=== PATIENT | male | born 2005 | race Caucasian/White ===

== ENCOUNTER 2025-04-30 13:51 | Outpatient (AMB) | payer BC, SELFPAY ==
--- OUTSIDE RECORDS SUMMARY | 2025-04-29 11:00 | XMS_ITS | Encounter Summary ---
Author Organization [facility] Address [address] [place] [id number] Phone Care Team Providers Care Cylinder Batcher Name Role Phone Radha Marte NP Primary Care Provider [phone] Reason for Referral * MRI/CAT Scan - New Request Specialty Diagnoses / Procedures Referred By Brenna t Referred To Contact Radiology Diagnoses Chronic daily headache NDPH (new daily persistent headache) Chronic tension-type headache, not intractable Procedures MRI Brain Larry Garza MD [address] [place] [address] Phone: tel: fax: mailto:[email or web address] Referral ID Status Reason Start Date Expiration Date V isits Requested Visits Authorized [id number] New Request 04/29/2025 1 1 Reason for Visit * Consultation (Routine) - New Request Specialty Diagnoses / Procedures Referred By Contren t Referred To Contact Neurology Diagnoses Headache, unspecified Beryl Bradley MD [address] [place] [id number] Phone: tel: fax: mailto:[email or web address] Akhil Anthony MD Phone: tel: fax: mailto:[email or web address] Referral ID Status Reason Start Date Expiration Date V isits Requested Visits Authorized [id number] New Request 10/04/2024 10/04/2025 1 1 Encounter Details Date Type Department Care Team (Late st Contact Info) Description 04/29/2025 11:00 AM EDT Office Visit [facility] Neurology at [place] [id number] [facility] [address] [place] [id number] Larry Garza MD [address] [place] [address] [place] [address] [email or web address] Chronic daily headache (Primary Dx); NDPH (new daily persistent headache); Chronic tension-type headache, not intractable; Migraine without aura and without status migrainosus, not intractable Social History Tobacco Use Types Packs/Day Years Used Date Smoking Tobacco: Never Assessed Education Answer Date Recorded Are you interested in more education? Not on elvira e 07/26/2024 Are you concerned about learning? Not on file 07/26/2024 No 07/26/2024 No 07/26/2024 Digital Access Answer Date Recorded No 07/26/2024 No 07/26/2024 Reliable internet access at home? Not on file 07/26/2024 Device with a working camera? Not on file Sex and Gender Information Value Date Recorded Sex Assigned at Not on file Legal Sex Male 2:05 PM EDT Gender Identity Not on file Sexual Orientation Not on file documented as of this encounter Last Filed Vital Signs Vital Sign Reading Time Taken Comments Blood Pressure 123/81 04/29/2025 10:10 AM EDT Pulse 59 04/29/2025 10:10 AM EDT Temperature 37.6 C (99.7 F) 04/29/2025 10:10 AM EDT Respiratory Rate - - Oxygen Saturation 100% 04/29/2025 10:10 AM EDT Inhaled Oxygen Concentration - - Weight 60.3 kg (133 lb) 04/29/2025 10:10 AM EDT Height 182.9 cm (6') 04/29/2025 10:10 AM EDT Body Mass Index 18.04 04/29/2025 10:10 AM EDT documented in this encounter Patient Instructions * Patient Instructions* Larry Garza MD - 04/29/2025 11:00 AM EDT For vitamins can consider takin) magnesium oxide 400mg or magnesium glycinate 200mg daily 2) Vitamin B2 (riboflavin) 400mg daily documented in this encounter Progress Notes * Larry Garza MD - 04/29/2025 11:00 AM EDT Images from the original note were not included. ? ? OUTPATIENT HEADACHE MEDICINE CONSULTATION [facility]/ [facility] ?04/28/2025 Gabino Mccracken is a 20 y.o. male who presents for headaches. He is accompanied by his mother. History of Present Illness He has a lifelong history of occasional mild headaches, which have intensified since his COVID-19 infection in 2019 or 2020. He describes a constant pressure throughout his entire cranium, with the location of the pain varying between the front, back, and eyes. The pain is described as a squeezing sensation, with a baseline intensity of 2 out of 10, peaking at 4 or 5. The headaches are daily, with brief periods of relief lasting a few hours. He believes the headaches are primarily due to cardiovascular issues (recently diagnoased w dysautonomia) and stress. He has tried ibuprofen and acetaminophen without significant relief. He also experiences fatigue, brain fog, heart palpitations, a lower heart rate, digestive issues, heat and cold intolerance, frequent urination, symptoms worsening after exertion, and sleep disturbances. He has noticed that his hea dache gets worse if he is having heart palpitations. He has identified focusing and screen time as triggers for his headaches. He has not noticed any changes in the intensity of his headache with changes in blood pressure. He also has bradycardia, which he thinks may contribute to his headaches. He is sensitive to light and loud sounds during his headaches but does not experience any aura. His headaches do not wake him up at night, but he sometimes wakes up with a severe headache. He reports no jaw or neck pain, nasal congestion, tearing of the eye, numbness, tingling, weakness, or worsening of headache with coughing or bearing down for a bowel movement. He reports no history of concussions, head injuries, whiplash injuries, meningitis, or brain infections. His physical activity has been declining, but he still engages in weightlifting and walking. He does not consume caffeine or alcohol and does not smoke. He has not had any brain imaging done. 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 He sometimes wonders ifhe has intracranial hypertension. He has been diagnosed with dysautonomia and orthostatic hypotension. Lying down helps when his orthostatic hypotension is acting up. PAST MEDICAL HISTORY: He is on the autism spectrum and has a lot of anxiety. Recent diagnosis of dysautonomia SOCIAL HISTORY: Starting school at [employer] in the fall. Alcohol: No Tobacco: No Coffee/Tea/Caffeine-containing Drinks: No FAMILY HISTORY - Negative for headaches or migraines in the family history. MEDICATIONS PREVIOUS MEDS: Ibuprofen Reason for Discontinuation: Did not help with headaches Acetaminophen Reason for Discontinuation: Did not help with headaches Review of Systems Objective ??BP 123/81 (BP Location: Right arm, Patient Position: Sitting) Pulse (!) 59 Temp 37.6 ??C (99.7 ??F) Ht 182.9 cm (6') Wt 60.3 kg (133 lb) SpO2 100% BMI 18.04 kg/m?? Physical Exam Cranial Nerve Examination CN II: Optic discs are sharp. CN III IV : Pupils equal, reactive. Extraocular movements intact. CN V: Facial sensation is intact bilaterally. CN VII: Facial movements are symmetric. CN XII: Tongue is midline. Motor Examination Coordination: Flzvpu-hn-lldx test normal. Upper Extremity Drift Test: No pronator drift. Reflexes Deep Tendon Reflexes: 1+ reflex in the arms, 2+ in the legs. Sensory Examination Light Touch, Vibration and Proprioception: Sensation normal to face and hands. Neck: Neck range of motion is full. Assessment & Plan #NDPH #Secondary ROBERTS #Chronic TTH w some migrainous features The headache is likely a symptom of dysautonomia, with features suggestive of both tension headacheand migraine. The intensity is mild to moderate, and there are no other neurological symptoms present. Given daily headache as red flag, will get an MRI of the brain with and without contrast will be ordered to rule out other potential causes though clinical suspicion remains that his dysautonomia could be contributing to low pressure headache.. He was advised to maintain a daily water intake of at least 2 liters, engage in 150 minutes of exercise per week, ensure 8 hours of sleep per night, and avoid common headache triggers. Yvkt-sow-ihxgjzg vitamins magnesium and vitamin B2 were recommended for headache management. If the MRI results are normal, no further follow-up will be necessary unlessthe headaches worsen. - Brain MRI wwo contrast - hold off on medications for now (based on presentation, patietn preference) #Dysautonomia. The patient's symptoms, including fatigue, brain fog, heart palpitations, lower heart rate, digestive issues, heat and cold intolerance, frequent urination, symptoms worsening after exertion, and sleep disturbances, are consistent with dysautonomia. He was advised to continue managing his blood pressure and cardiovascular symptoms as these are likely contributing to his headaches. - following cardiology, covid clinic I obtained verbal consent from the patient or their proxy to record this visit for purposes of producing a draft of the encounter documentation. Follow-up PRN pending MRI results ? Comment: ? Review patient expectations for this visit. ? Nature and prognosis discussed. ? Discussed medications with the patient, including risks, benefits, side effects and alternatives. Off-label use of medications is discussed with the patient as warranted.? ? I personally spent 50 minutes preparing for, caring for the patient (F2F and non-F2F), and finalizing the visit for this patient. ? ? Larry Valverde MD [facility] Headache Attending ? documented in this encounter Plan of Treatment Upcoming Encounters Date Type Department Care Team (Late st Contact Info) Description 04/29/2025 Procedure Pass [facility] Radiology [address] [address] 05/30/2025 3:15 PM EDT Appointment [facility] Radiology [address] [address] Larry Garza MD [address] [place] [address] [place] [address] [email or web address] Scheduled Orders Name Type Priority Associated Diagnoses Orde r Schedule MRI Brain Imaging Routine Chronic daily headache NDPH (new daily persistent headache) Chronic tension-type headache, not intractable Expected: 05/06/2025, Expires: 07/30/2025 documented as of this encounter Visit Diagnoses Diagnosis Chronic daily headache- Primary Headache NDPH (new daily persistent headache) New daily persistent headache Chronic tension-type headache, not intractable Chronic tension type headache Migraine without aura and without status migrainosus, not intractable documented in this encounter Care Teams Cylinder Batcher Relationship Specialty Start Date End Date Radha Marte NP [address] [place] [phone] PCP - General Nurse Practitioner 01/10/25 documented as of this encounter Additional Source Comments The information contained in this document represents components of the legal health record. It is not the complete legal health record.[facility]
--- NOTE | 2025-04-30 14:02 | MHC.OFFVIS ---
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 These symptoms have been present for a few years and have progressively worsened over time. The patient reports experiencing dizziness upon standing, which necessitates sitting back down to alleviate the symptoms. The patient has a history of COVID-19 infection in 2020, after which these symptoms began to manifest. He describes a significant decrease in exercise capacity, noting that post-exertional malaise can last several days. Previously able to run significant distances, he now experiences severe fatigue after minimal exertion, such as running half a mile. The patient monitors his blood pressure at home, (which has shown readings as low as 76/61 mmHg per PCP note, but patient cannot recall this). He also reports experiencing premature ventricular contractions (PVCs) after physical activity, which can persist for several days. Despite these symptoms, he has not experienced syncope. [facility] Family History (Updated 04/30/25 @ 14:11 by Dianna Meier) Mother High blood pressure Father No problems noted. Social History (Updated 04/30/25 @ 14:11 by Dianna Meier) Alcohol intake: never Patient Tobacco Use Status: Never used Tobacco Review of Systems Const Denies weakness ENT Reports dizziness Card Denies chest pain, Denies chest pain with activity, Denies syncope, Denies rapid heart rate, Denies pedal edema, Denies edema, Denies leg edema, Denies lightheadedness, Reports palpitations, Denies dyspnea, Denies dyspnea on exertion and Denies orthopnea Resp Denies cough, Denies dyspnea and Denies dyspnea on exertion GI Denies hematochezia and Denies change in stool character Musc Denies abnormal gait, Denies muscle cramps, Denies muscle weakness, Denies numbness, Denies radiating pain into limb and Denies tingling Neuro Denies abnormal gait, Reports dizziness, Denies syncope, Denies numbness, Denies tingling and Denies weakness Endo Reports palpitations Physical Exam Vital Signs: Last Vital Signs Pulse 47 L 04/30/25 14:09 BP 100/58 L 04/30/25 14:09 BMI result Body Mass Index 17.3 Const General: comfortable and no acute distress Orientation/consciousness: patient oriented x3 HEENT Other: Unremarkable Head: Yes normal to inspection Neck Neck: Yes normal visual inspection Chest Chest palpation & inspection: normal inspection of the chest Resp Auscultation: clear to auscultation bilaterally Cardio Palpation: normal PMI Heart sounds: S1 normal heart sound present, S2 normal heart sound present, no gallops, no murmurs and no rubs GI Palpation (GI): Soft to palpation Back/Spine/Pelvis Other: unremarkable Skin General skin exam: no rashes or lesions noted Neuro General: patient oriented x3 Extrem General: Yes normal to inspection Psych Mental Status: mental status grossly normal Office Procedures EKG Details: EKG with sinus bradycardia at 47/Min; sinus arrhythmias; rightward axis; [place]. [id number], Complete Assessment & Plan Assessment & Plan (1) PVC (premature ventricular contraction): Code(s): I49.3 - Ventricular premature depolarization Category: Medical (2) Sinus bradycardia: Code(s): R00.1 - Bradycardia, unspecified Category: Medical (3) Orthostatic hypotension: Code(s): I95.1 - Orthostatic hypotension Category: Medical (4) Chronic fatigue: Code(s): R53.82 - Chronic fatigue, unspecified Category: Medical (5) Post-COVID syndrome: Code(s): U09.9 - Post COVID-19 condition, unspecified Category: Medical Plan He has completed a Holter monitor through an outside practice. In that study, heart rates that ranged from 30-115/Min. PVCs were noted. However, there was no mention of the actual PVC burden. The bradycardia episodes have been described to occur predominantly during back hand hours. Palpitations in patient diary have correlated with sinus bradycardia and PVCs. The plan includes conducting an echocardiogram to assess cardiac function and a stress test to evaluate the heart's response to physical activity. A tilt table test is recommended to investigate the cause of the patient's dizziness upon standing. As there is no information on the actual PVC burden, he does not need a repeat Holter to quantify this. The patient will be followed up in four to six weeks to review test results and adjust the management plan accordingly. Orders: Orders ECG 3 day holter monitor Today I49.3 - Ventricular premature depolarization CA echo transthoracic complete Today I49.3 - Ventricular premature depolarization CA stress test Today I49.3 - Ventricular premature depolarization ECG Tilt Table Test Today I95.1 - Orthostatic hypotension Coding Level of Care Code New Pt Level 4 (44846) Complex EM visit Add On G2211 Diagnoses PVC (premature ventricular contraction) I49.3 Sinus bradycardia R00.1 Orthostatic hypotension I95.1 Chronic fatigue R53.82 Post-COVID syndrome U09.9 CPT Codes EKG - CPT: 98513-[id number], Complete ([id number])
[2025-04-30 14:09] VITALS: BP 100/58; PULSE 47; BMI 17.3
== END 2025-04-30 15:04 | disposition home or self-care (01) ==
LOC: HO.HCS 13:52
PROVIDERS: PCP Registered Nurse; Visit Provider Internal Medicine
DX: I49.3 Ventricular premature depolarization (principal); R00.1 Bradycardia, unspecified; I95.1 Orthostatic hypotension; R53.82 Chronic fatigue, unspecified; U09.9 Post COVID-19 condition, unspecified
CPT/HCPCS: 93010; 99204

== ENCOUNTER → 2025-04-30 13:51 | Outpatient (BNVA) | payer BC, SELFPAY | PROVIDERS: PCP Registered Nurse; Visit Provider Internal Medicine | DX: I95.1 Orthostatic hypotension (principal); I49.3 Ventricular premature depolarization; R00.1 Bradycardia, unspecified; R53.82 Chronic fatigue, unspecified; U09.9 Post COVID-19 condition, unspecified | CPT/HCPCS: 93005 ==

== ENCOUNTER → 2025-06-06 09:03 | Outpatient (REF) | payer BC, SELFPAY ==
--- NOTE | 2025-06-06 09:09 | HM_ITS ---
* Total monitoring time 3 days. * Underlying rhythm is sinus with an average rate of 47/Min. * About 77% of the time, rate < 60/Min. * Rare supraventricular ectopy. * Rare ventricular ectopy, burden of 0.3%. * No significant pauses or high-grade AV blocks. * ' more PVCs than usual' symptom in patient diary correlates with sinus rhythm and PVCs. MTDD
--- NOTE | 2025-06-06 09:09 | CA_ITS ---
Transthoracic Echocardiogram Patient (Last, First, Middle): Silvio Mccracken, Gender: M Date of : 2005 Age: 20 Procedure Date: 06/06/2025 Procedure Type: Transthoracic Echocardiogram Location: OP Height: 182.88 cm Weight: 58.97 kg BSA: 1.77 m2 Heart Rate: 51 bpm BP: 115 / 60 mmHg Sheriff Deputy: Referring MD: Clifford Thomas MD Automobiles Salesperson: Mark Zacarias MD Symptoms: I49.3 - Ventricular premature depolarization Study Quality: Adequate ECG Rhythm: Bradycardia Conclusions: - Trivial pericardial effusion otherwise normal study Findings Left Ventricle Normal left ventricular size, thickness, and systolic function. The visually estimated ejection fraction is between 65-70%. Diastolic function is normal for age. Right Ventricle Normal right ventricular cavity size and systolic function. Atria Both atria are normal in size. There is no evidence of interatrial shunt. Aortic Valve Normal aortic valve structure and function. There is no aortic valve stenosis. There is no aortic valve regurgitation. Mitral Valve Normal mitral valve structure and function. There is no mitral valve regurgitation. There is no mitral valve stenosis. Pulmonic Valve The pulmonic valve is normal. There is trace pulmonic valve regurgitation. Tricuspid Valve Normal tricuspid valve structure. There is trace tricuspid valve regurgitation. The right ventricular systolic pressure is normal. The right ventricular systolic pressure is 21 mmHg. Normal right atrial pressure. There is no evidence of pulmonary hypertension. Great Vessels All visible segments of the aorta are normal in size. The visualized portions of the pulmonary artery and branches are normal. Venous The inferior vena cava is normal in size and collapses greater than 50% with inspiration. Pericardium/Pleural There is a trivial pericardial effusion. Prior Study Comparison No prior study available for comparison. Measurements 2D Linear Measurements IVSd: 0.88 0.6-0.9/0.6-1.0 cm LVIDd: 4.18 3.9-5.3/4.2-5.9 cm LVIDd Index: 2.36 2.4-3.2/2.2-3.1 cm/m2 LVIDs: 2.77 2.0-3.6 cm LVPWd: 0.83 0.7-1.1 cm LA Diam: 2.70 2.7-3.8/3.0-4.0 cm LAIDs Index: 1.53 1.5-2.3 cm/m2 LV Mass: 136.12 67-162/88-224 g LV Mass Index: 76.90 43-95/49-115 g/m2 LVOT Diam: 2.20 3.0+(-)1.3 cm 2D Systolic Function EF 4C: 69.40 >55% Mitral Valve MV Pk E: 0.77 MV PK A: 0.34 MV Decel Time: 209.00 E/A: 2.30 E'Lateral: 13.70 E'Medial: 15.60 E/E' Med: 4.90 E/E' Lat: 5.60 PHT: 61.00 MVA PHT: 3.61 Decel Miner: 3.68 Aortic Valve AoV Pk Edison: 1.11 AoV Mn Edison: 0.81 AoV VTI: 0.32 AoV Pk Grad: 5.00 Aov Mn Grad: 3.00 ASA Cont.VTI: 2.43 LVOT LVOT Pk Edison: 0.81 LVOT Mn Edison: 0.55 LVOT VTI: 0.21 LVOT Pk Grad: 3.00 LVOT Mn Grad: 1.00 LVOT Diam: 2.20 LVOT Area: 3.80 Diastolic Function MV Pk E: 0.77 MV Pk A: 0.34 E/A: 2.30 E'Medial: 15.60 E/E' Med: 4.90 E' Laterial: 13.70 E/E' Lat: 5.60 Right Ventricle TAPSE (mm): 34.20 TVS' Edison: 15.60 Tricuspid Valve TR Pk Edison: 2.11 TR Pk Grad: 18.00 RA Press: 3.00 RVSP: 21.00 Great Vessels Aorta Sinus of Valsalva: 2.90 2.0-3.5 cm Ao Asc: 2.60 2.1-3.4 cm Pulmonary Veins Pulm Vein S/D 0.90 Pulmonary Valve PV Pk Edison: 1.03 Peak PV Grad: 4.00 Updated in Other Vendor System with Status of Final Mark Zacarias MD electronically signed on 06/06/2025 3:33:08 PM with status of Final
--- OUTSIDE RECORDS SUMMARY | 2025-06-06 09:54 | XMS_ITS | Clinical Summary ---
Author Organization [facility] Address [address] [place] [phone] Phone Care Team Providers Care Quiller Operator Name Role Phone Radha Marte NP Primary Care Provider Allergies No known active allergies Medications No known medications Active Problems Problem Noted Date Diagnosed Date Palpitations 08/20/2024 Anxiety 08/20/2024 Encounters Date Type Department Care Team Description 05/30/2025 2:31 PM EDT - 05/30/2025 11:59 PM EDT Hospital Encounter [facility] Radiology [address] [address] Larry Garza MD Discharge Disposition: Home or Self Care 04/29/2025 1:30 PM EDT Office Visit [facility] [address] [place] [address] Becka Heart PA-C 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); Dysautonomia 04/29/2025 11:00 AM EDT Office Visit [facility] Neurology at [address] [address] Larry Garza MD Chronic daily headache (Primary Dx); NDPH (new daily persistent headache); Chronic tension-type headache, not intractable; Migraine without aura and without status migrainosus, not intractable 04/29/2025 Procedure Pass [facility] [place] [address] [place] [address] 04/17/2025 Orders Only [facility] [address] Floor, [address] [place] [address] Radha Marte NP from Last 3 Months Social History Tobacco Use Types Packs/Day Years [...] on file Sexual Orientation Not on file Last Filed Vital Signs Vital Sign Reading Time Taken Comments Blood Pressure 137/81 04/29/2025 1:22 PM EDT Pulse 48 04/29/2025 1:22 PM EDT Temperature 35.7 C (96.2 F) 04/29/2025 1:22 PM EDT Respiratory Rate 18 04/29/2025 1:22 PM EDT Oxygen Saturation 100% 04/29/2025 1:22 PM EDT Inhaled Oxygen Concentration - - Weight 60.3 kg (133 lb) 04/29/2025 1:22 PM EDT Height 182.9 cm (6') 04/29/2025 1:22 PM EDT Body Mass Index 18.04 04/29/2025 1:22 PM EDT Plan of Treatment Health Maintenance Due Date Last Done Comments SMOKING Hx and SMOKELESS TOBACCO SCREENING 2018 HPV VACCINES (2 - Male 2-dose series) 06/28/2018 12/27/2017 MENINGOCOCCAL VACCINES (B) (1 of 2 - Standard) 03/16/2022 02/16/2022, 04/27/2016 ADOLESCENT UNIVERSAL LIPID SCREENING 2022 HEPATITIS C SCREENING 2023 HIV ONE-TIME SCREENING (18-65 YEARS) 2023 COVID-19 VACCINE (4 - 2024-26 season) 2025 09/12/2023, 07/08/2022, 03/08/2021, Additional history exists DEPRESSION SCREENING 04/29/2026 04/29/2025, 04/28/20 25 DEVELOPMENTAL/BEHAVIORAL SCREENING (PHQ, PSC, or SWYC) 04/29/2026 04/29/2025, 04/28/2025 COMBINED DTaP,Tdap,Td (8 - Td or Tdap) 07/01/2034 07/01/2024, 04/27/2016, 08/24/2009, Additional history exists PNEUMOCOCCAL VACCINES (0-49 years) Aged Out 05/09/2006, 2005, 2005, Additional history exists No longer eligible based on patient's age to complete this topic HIB VACCINES Completed 04/07/2009, 04/25, 2005, Additional history exists MMR VACCINES Completed 08/24/2009, 05/09/2006 VARICELLA VACCINES Completed 08/24/2009, 05/09/2006 HEPATITIS A VACCINES Completed 05/13/2013, 11/08/19 13 INFLUENZA VACCINE Completed 05/28/2025, 07/01/2024 MENINGOCOCCAL VACCINES (ACWY) Aged Out No longer eligible based on patient's age to complete this topic Medical Devices Not on file Procedures Procedure Name Priority Date/Time Associated Diagnosis Comments MRI BRAIN WITHOUT CONTRAST Routine 05/30/2025 2:57 PM EDT Chronic daily headache NDPH (new daily persistent headache) Chronic tension-type headache, not intractable OUTSIDE MONITOR Routine 04/17/2025 9:48 AM EDT from Last 3 Months Results * MRI BRAIN WITHOUT CONTRAST (05/30/2025 2:57 PM EDT) Anatomical Region Laterality Modality Head Magnetic Resonan ce 05/30/2025 3:03 PM EDT Impressions 05/30/2025 4:37 PM EDT 1. No acute intracranial findings. 2. Scattered T2/FLAIR hyperintensities, mainly along perivascular spaces but also in the bifrontal white matter, are nonspecific but can be seen with migraine, inflammatory processes, among other etiologies. ATTESTATION: I, Laci Paech, as teaching physician have reviewed the images, if any, for this patient's exam, and if necessary, have edited the report originally created by Thiago Torres. Narrative 05/30/2025 4:37 PM EDT MRI BRAIN WITHOUT CONTRAST Referring clinician's provided indication for this examination in [facility]: * Headache, chronic, new features or increased frequency TECHNIQUE: MRI BRAIN WITHOUT CONTRAST Multi-sequence, multi-planar MRI of the brain was performed without intravenous contrast. COMPARISON: None FINDINGS: Brain Parenchyma: No evidence of acute infarct, mass or hemorrhage. There are scattered foci of T2 hyperintensity in the white matter, mainly along prominent perivascular spaces. Prominent perivascular space in the left periatrial white matter (16; 21). Ventricular System and Extra-Axial Spaces: There is no evidence of midline shift or hydrocephalus. Extracranial Structures: Expected arterial flow signal is observed at the skull base. Tiny mucous retention cyst in the left maxillary sinus. Procedure Note Laci Moralez MD, PhD - 05/30/2025 MRI BRAIN WITHOUT CONTRAST Referring clinician's provided indication for this examination in [facility]: *Headache, chronic, new features or increased frequency TECHNIQUE: MRI BRAIN WITHOUT CONTRAST Multi-sequence, multi-planar MRI of the brain was performed withoutintravenous contrast. COMPARISON: None FINDINGS: Brain Parenchyma: No evidence of acute infarct, mass or hemorrhage. Thereare scattered foci of T2 hyperintensity in the white matter, mainly alongprominent perivascular spaces. Prominent perivascular space in the leftperiatrial white matter (16; 21). Ventricular System and Extra-Axial Spaces: There is no evidence of midlineshift or hydrocephalus. Extracranial Structures: Expected arterial flow signal is observed at theskull base. Tiny mucous retention cyst in the left maxillary sinus. IMPRESSION: 1. No acute intracranial findings. 2. Scattered T2/FLAIR hyperintensities, mainly along perivascular spacesbut also in the bifrontal white matter, are nonspecific but can be seenwith migraine, inflammatory processes, among other etiologies. ATTESTATION: Laci Harper, as teaching physician have reviewed theimages, if any, for this patient's exam, and if necessary, have edited thereport originally created by Thiago Torres. Larry Flores MD IMG MR HEAD/NECK Final Result * Outside Monitor Report Only (04/17/2025 9:48 AM EDT) us Radha Marte NP [facility] ORDERABL ES Final Result from Last 3 Months Insurance [place] [place] [address] PPO Delia PEDERSEN [place], [place] [facility] OUT OF STATE PPO [facility] OUT OF STATE PPO Member Subscriber Plan / Payer (Ef fective 2023-) Name:Silvio Mccracken Member ID:[id number] Relation to Subscriber:Child Name:AWILDALAURENCE Robledo Subscriber ID:[id number] Date of :1976 (Home) Address: Delia AUBREYJie [place], [place] Payer ID:[id number] ([facility]) Type:PPO Address: [address] [address] [place] [facility] OUT OF STATE PPO Delia AUBREYJie PEDERSEN [place], [place] Hetal [employer] OUT OF STATE PPO Care Teams Quiller Operator Relationship Specialty Start Date End Date Radha Marte NP [address] [place] [phone] PCP - General Nurse Practitioner 01/10/25 Additional Source Comments The information contained in this document represents components of the legal health record. It is not the complete legal health record.[facility]
--- OUTSIDE RECORDS SUMMARY | 2025-06-06 09:54 | XMS_ITS | Encounter Summary ---
Author Organization [facility] Address [address] [place] [address] [place] [phone] Phone Care Team Providers Care Hand Bookbinder Name Role Phone Radha Marte NP Primary Care Provider Encounter Details Date Type Department Care Team (Late st Contact Info) Description 04/29/2025 Procedure Pass [facility] [place] [address] [place] [address] Social History Tobacco Use Types Packs/Day Years [...] on file documented as of this encounter Plan of Treatment Not on file documented as of this encounter Visit Diagnoses Not on filedocumented in this encounter Care Teams Hand Bookbinder Relationship Specialty Start Date End Date Radha Marte NP [address] [place] [phone] PCP - General Nurse Practitioner 01/10/25 documented as of this encounter Additional Source Comments The information contained in this document represents components of the legal health record. It is not the complete legal health record.[facility]
== END ==
LOC: HO.CARD 09:03
PROVIDERS: PCP Registered Nurse; Visit Provider Internal Medicine
DX: I49.3 Ventricular premature depolarization (principal)
CPT/HCPCS: 93242; 93306

== ENCOUNTER → 2025-06-06 09:09 | Outpatient (BNV) | payer BC, SELFPAY | PROVIDERS: PCP Registered Nurse; Visit Provider Internal Medicine Cardiovascular Disease | DX: I49.3 Ventricular premature depolarization (principal) | CPT/HCPCS: 93306 ==

== ENCOUNTER → 2025-06-09 09:55 | Outpatient (REF) | payer BC, SELFPAY ==
--- NOTE | 2025-06-09 10:27 | CA_ITS ---
Acquisition Time: 2025-06-09 10:34:05 Total Exercise Time: 00:09:08 Test Indications: PVC'S BRADYCARDIA PALPITATIONS FATIGUE Medications: NONE Protocol: RICH Max HR: 151 BPM 75% of Pred: 200 BPM Max BP: 110/80 mmHG Max Work Load: 10.3 METS Exercise stress test with exercise 9 mins 8 secs of Rich Protocol, achieving 75% MPHR, requested to stop due to lightheadedness and fatigue, no chest pain, with frequent PVCs in recovery, with BP dropping to 90/60 in Stage 3 that improved initially in recovery then lowest back to 86/78. No EKG changes at achieved workload for ischemia. In recovery, pt feeling back to baseline. BP improved to 100/78. Test reviewed with Dr. Thomas. Referred By: Clifford Thomas Electronically Signed By: Bryce Wong
--- OUTSIDE RECORDS SUMMARY | 2025-06-09 12:18 | XMS_ITS | Encounter Summary ---
Author Organization [facility] Address [address] [place] [address] [place] [address] Phone Care Team Providers Care Gynecologist Name Role Phone Radha Marte NP Primary Care Provider Encounter Details Date Type Department Care Team (Late st Contact Info) Description 04/29/2025 Procedure Pass [facility] [place] [address] [place] [address] Social History Tobacco Use Types Packs/Day Years [...] on filedocumented in this encounter Care Teams Gynecologist Relationship Specialty Start Date End Date Radha Marte NP [address] [place] [phone] PCP - General Nurse Practitioner 01/10/25 documented as of this encounter Additional Source Comments The information contained in this document represents components of the legal health record. It is not the complete legal health record.[facility]
--- OUTSIDE RECORDS SUMMARY | 2025-06-09 12:19 | XMS_ITS | Clinical Summary ---
Author Organization [facility] Address [address] [place] [phone] Phone Care Team Providers Care Forest Manager Name Role Phone Radha Marte NP Primary Care Provider Allergies No known active allergies Medications No known medications Active Problems Problem Noted Date Diagnosed Date Palpitations 08/20/2024 Anxiety 08/20/2024 Encounters Date Type Department Care Team Description 05/30/2025 2:31 PM EDT - 05/30/2025 11:59 PM EDT Hospital Encounter [facility] Radiology [address] [address] Larry Garza MD Discharge Disposition: Home or Self Care 04/29/2025 1:30 PM EDT Office Visit [facility] [address] [place] [address] Becka Heart PA-C 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); Dysautonomia 04/29/2025 11:00 AM EDT Office Visit [facility] Neurology at [address] [address] Larry Garza MD Chronic daily headache (Primary Dx); NDPH (new daily persistent headache); Chronic tension-type headache, not intractable; Migraine without aura and without status migrainosus, not intractable 04/29/2025 Procedure Pass [facility] [place] [address] [place] [address] 04/17/2025 Orders Only [facility] [address], [address] [place] [address] Radha Marte NP from Last 3 Months [...] clinician's provided indication for this examination in [facility]: * Headache, chronic, new features or [...] clinician's provided indication for this examination in [facility]: *Headache, chronic, new features or increased [...] 3 Months Insurance OUT [place] [address] [address] PPO Delia PEDERSEN [place], [place] [facility] OUT OF STATE PPO [facility] OUT OF STATE PPO [place] [facility] OUT OF STATE PPO Delia AUBREYJie [place], [place] Hetal [employer] OUT OF STATE PPO Care Teams Forest Manager Relationship Specialty Start Date End Date Radha Marte NP [address] [place] [phone] PCP - General Nurse Practitioner 01/10/25 Additional Source Comments The information contained in this document represents components of the legal health record. It is not the complete legal health record.[facility]
== END ==
LOC: HO.CARD 09:55
PROVIDERS: PCP Registered Nurse; Visit Provider Internal Medicine
DX: I49.3 Ventricular premature depolarization (principal)
CPT/HCPCS: 93017

== ENCOUNTER → 2025-06-09 10:27 | Outpatient (BNV) | payer BC, SELFPAY | PROVIDERS: PCP Registered Nurse | DX: I49.3 Ventricular premature depolarization (principal) | CPT/HCPCS: 93016; 93018 ==

== ENCOUNTER 2025-09-15 13:40 | Outpatient (AMB) | payer BC, SELFPAY ==
[2025-09-15 13:42] VITALS: BP 118/62; PULSE 55; BMI 17.6
--- NOTE | 2025-09-15 13:42 | MHC.OFFVIS ---
Vital Signs 09/15/25 13:42 Height 6 ft Weight 130 lb 1.164 oz BMI 17.6 BP 118/62 Blood Pressure Location Lt brachial Position Sitting Pulse 55 Pulse Source Pulse Oximeter Intake Visit Reasons: f/up ett/ 3 day/ echo/ tilt mmc r/s 07-30-25 Allergies No Known Allergies Allergy (Verified 04/30/25 14:10) Medication List - Last Reconciled 09/15/25 by Clifford Thomas MD naltrexone 3.5 mg PO HPI Comments Details: Silvio returns for follow-up. Previously describes symptoms like fatigue, lightheadedness, headaches, palpitations, exercise intolerance that has been present for a few years but worse recently. Some dizziness upon standing. The patient has a history of COVID-19 infection in 2020, after which these symptoms began to manifest. He describes a significant decrease in exercise capacity, noting that post-exertional malaise can last several days. Previously able to run significant distances, he now experiences severe fatigue after minimal exertion, such as running half a mile. The patient monitors his blood pressure at home, (which has shown readings as low as 76/61 mmHg per PCP note, but patient cannot recall this). He also reports experiencing premature ventricular contractions (PVCs) after physical activity, which can persist for several days. Despite these symptoms, he has not experienced syncope. He has completed a comprehensive workup including echocardiogram, stress test, Holter as well as tilt-table test. [facility] Family History (Updated 04/30/25 @ 14:11 by Dianna Meier) Mother High blood pressure Father No problems noted. Social History (Updated 04/30/25 @ 14:11 by Dianna Meier) Alcohol intake: never Patient Tobacco Use Status: Never used Tobacco Review of Systems Const Denies weakness ENT Denies dizziness Card Denies chest pain, Denies chest pain with activity, Denies syncope, Denies rapid heart rate, Denies pedal edema, Denies edema, Denies leg edema, Denies lightheadedness, Denies palpitations, Denies dyspnea, Denies dyspnea on exertion and Denies orthopnea Resp Denies cough, Denies dyspnea and Denies dyspnea on exertion GI Denies hematochezia and Denies change in stool character Musc Denies abnormal gait, Denies muscle cramps, Denies muscle weakness, Denies numbness, Denies radiating pain into limb and Denies tingling Neuro Denies abnormal gait, Denies dizziness, Denies syncope, Denies numbness, Denies tingling and Denies weakness Endo Denies palpitations Physical Exam Vital Signs: Last Vital Signs Pulse 55 09/15/25 13:42 BP 118/62 09/15/25 13:42 BMI result Body Mass Index 17.6 Const General: comfortable and no acute distress Orientation/consciousness: patient oriented x3 HEENT Other: Unremarkable Head: Yes normal to inspection Neck Neck: Yes normal visual inspection Chest Chest palpation & inspection: normal inspection of the chest Resp Auscultation: clear to auscultation bilaterally Cardio Palpation: normal PMI Heart sounds: S1 normal heart sound present, S2 normal heart sound present, no gallops, no murmurs and no rubs GI Palpation (GI): Soft to palpation Back/Spine/Pelvis Other: unremarkable Skin General skin exam: no rashes or lesions noted Neuro General: patient oriented x3 Extrem General: Yes normal to inspection Psych Mental Status: mental status grossly normal Assessment & Plan Assessment & Plan (1) PVC (premature ventricular contraction): Code(s): I49.3 - Ventricular premature depolarization Category: Medical (2) Sinus bradycardia: Code(s): R00.1 - Bradycardia, unspecified Category: Medical (3) Orthostatic hypotension: Code(s): I95.1 - Orthostatic hypotension Category: Medical (4) Chronic fatigue: Code(s): R53.82 - Chronic fatigue, unspecified Category: Medical (5) Post-COVID syndrome: Code(s): U09.9 - Post COVID-19 condition, unspecified Category: Medical Plan Cardiac testing reviewed. Echocardiogram with LVEF 65-70%. Normal diastolic function no significant valvular findings. Trivial pericardial effusion In the stress test, he reached 10.3 METS on Jose L protocol and reached 75% of max predicted heart rate. Stopped due to lightheadedness/fatigue. PVCs in recovery. Blood pressure dropping to 90/16 stage III. In recovery, back to baseline with improvement in blood pressure. In the Holter monitor, underlying rhythm is sinus with an average rate of 47/Min. About 77% of the time, rate < 60/Min. Rare supraventricular/ventricular ectopy. In the tilt-table test, no evidence of orthostatic hypotension. No heart rate increased with tilt. Overall, he does have evidence of chronotropic incompetence on stress test which might explain symptoms like fatigue and exercise intolerance. We discussed about the fact that there are no medications to treat this and only true remedy would be a pacemaker but considering his very young age do not recommend implanting a [employer] at this time. We also discussed about the fact that things may spontaneously improved with time. With regard to the lowish blood pressures, optimize fluid and salt intake. Recommend some weight gain which may improve both the heart rate as well as the blood pressure. If things fail to improve, he will contact us. Otherwise, plan to see him back in one year. Discussion Notes: I reviewed the results of the patient's recent cardiac workup with him and his father. I explained that while his echocardiogram and tilt table test were normal, his heart monitor showed a slow average heart rate of 47 bpm (bradycardia) and his stress test showed an inadequate heart rate response to exercise (chronotropic incompetence), which are the likely causes of his symptoms of fatigue and dizziness. I discussed treatment options, noting that there are no medications to increase heart rate. I explained that while a pacemaker is a remedy for a slow heart rate, I strongly advised against it at his young age of 20 due to the long-term burdens, including lifelong dependency, the need for multiple battery replacements over his lifetime, and the risk of complications such as infection. We agreed on a conservative management plan, focusing on lifestyle modifications. I advised him to increase salt and water intake and to focus on gaining weight and muscle mass, as this may naturally improve his symptoms. I recommended we give it time, with a follow-up in about one year. I instructed him to call if he does not feel better. Patient was informed and verbally consented to the use of an ambient scribe for clinic note documentation during this visit. Total time spent including review of data, counseling, documentation, coordination of care-37 minutes. Patient Instructions: - Your symptoms of fatigue and dizziness are likely due to a slow heart rate that does not speed up enough with activity. - Try to gain weight and build more muscle, as this may help improve your heart rate and blood pressure. - Increase the amount of salt in your diet and drink plenty of water to help with your low blood pressure. - A pacemaker is not recommended for you at this time because you are very young and it would require life-long care and multiple surgeries. - Be patient, as these symptoms may get better on their own over time. - We will schedule a follow-up appointment in about one year. Please call the office if your symptoms get worse or do not improve. Coding Level of Care Code Est Pt Level 4 (38654) Add On Problem Visit Only Diagnoses PVC (premature ventricular contraction) I49.3 Sinus bradycardia R00.1 Orthostatic hypotension I95.1 Chronic fatigue R53.82 Post-COVID syndrome U09.9
--- OUTSIDE RECORDS SUMMARY | 2025-09-15 17:06 | XMS_ITS | Encounter Summary ---
Author Organization [facility] Address [address] [place] [address] Phone Care Team Providers Care Topographical Engineer Name Role Phone Radha Marte TRAIN CALLER Primary Care Provider [phone] Encounter Details Date Type Department Care Team (Late st Contact Info) Description 04/29/2025 Procedure Pass [facility] [place] [address] [place] [phone] Social History Tobacco Use Types Packs/Day Years [...] as of this encounter Plan of Treatment Upcoming Encounters Date Type Department Care Team (Late st Contact Info) Description 09/24/2025 2:45 PM EST Office Visit [facility] [address] [place] [address] Unknown, Unknown, Briseyda Rockwell, TORYC [address] [address] [email or web address] documented as of this encounter Visit Diagnoses Not on filedocumented in this encounter Care Teams Topographical Engineer Relationship Specialty Start Date End Date Radha Marte NP [address] [place] [phone] PCP - General Nurse Practitioner 01/10/25 documented as of this encounter Additional Source Comments The information contained in this document represents components of the legal health record. It is not the complete legal health record.[facility]
--- OUTSIDE RECORDS SUMMARY | 2025-09-15 17:06 | XMS_ITS | Clinical Summary ---
Author Organization [facility] Address [address] [place] [phone] Phone Care Team Providers Care Network Designer Name Role Phone Radha Marte NP Primary Care Provider Allergies No known active allergies Medications No known medications Active Problems Problem Noted Date Diagnosed Date Palpitations 08/20/2024 Anxiety 08/20/2024 Social History Tobacco Use Types Packs/Day Years [...] 04/29/2025 1:22 PM EDT Plan of Treatment Upcoming Encounters Date Type Department Care Team ([facility] st Contact Info) Description 09/24/2025 2:45 PM EST Office Visit [facility] [address] [place] [address] Unknown, Unknown, Briseyda Rockwell, FLORA [address] [place] [phone] [email or web address] Health Maintenance Due Date Last Done Comments SMOKING Hx and SMOKELESS TOBACCO SCREENING 2018 HPV VACCINES (2 - Male 2-dose series) 06/28/2018 12/27/2017 MENINGOCOCCAL VACCINES (B) (1 of 2 - Standard) 03/16/2022 02/16/2022, 04/27/2016 ADOLESCENT UNIVERSAL LIPID SCREENING 2022 HEPATITIS C SCREENING 2023 HIV ONE-TIME SCREENING (18-65 YEARS) 2023 COVID-19 VACCINE (2024- season) 2025 09/12/2023, 07/08/2022, 03/08/2021, Additional history [...] 05/09/2006 HEPATITIS A VACCINES Completed 05/13/2013, 11/08/19 INFLUENZA VACCINE Completed 05/28/2025, 07/01/2024 MENINGOCOCCAL VACCINES (ACWY) Aged Out No longer eligible based on patient's age to complete this topic Medical Devices Not on file [place] [address] [place] [address] OUT [facility] [place] [address] [facility] OUT OF STATE PPO [employer] [facility] OUT OF [facility] [employer] PPO [employer] [place] [facility] OUT OF STATE PPO [employer] OUT OF STATE PPO Care Teams Network Designer Relationship Specialty Start Date End Date Radha Marte NP [address] [place] [phone] PCP - General Nurse Practitioner 01/10/25 Additional Source Comments The information contained in this document represents components of the legal health record. It is not the complete legal health record.[facility]
--- OUTSIDE RECORDS SUMMARY | 2025-09-15 17:06 | XMS_ITS | Clinical Summary ---
Author Organization [facility] Address [address] [place] [address] Phone Care Team Providers Care Network Internship Name Role Phone Radha Marte Primary Care Provider [phone] Encounters Date Type Department Care Team Description 07/29/2025 1:25 PM EST - 07/29/2025 11:59 PM EST Hospital Encounter [facility] Xray [address] [place] [address] Orthostatic hypotension Discharge Disposition: Home or Self Care from Last 3 Months Social History Tobacco Use Types Packs/Day Years Used Date Smoking Tobacco: Never Assessed Sex and Gender Information Value Date Recorded Sex Assigned at Not on file Legal Sex Male 10:11 AM EDT Gender Identity Not on file Sexual Orientation Not on file Plan of Treatment Health Maintenance Due Date Last Done Comments Hepatitis B Vaccines (4 of 4 - 4-dose series) 2005 2005, 2005, 2005 HPV Vaccines (2 - Male 2-dose series) 06/28/2018 12/27/2017 Meningococcal B Vaccine (1 of 2 - Standard) 03/16/2022 02/16/2022, 04/27/2016 Depression Screening 09/25/2024 Annual Well Child Visit (3-21 years old) 06/11/2025 HIV Screening 06/11/2025 Hepatitis C Screening 06/11/2025 Social Influencers of Health Screening 06/11/2025 DTaP,Tdap,and Td Vaccines (8 - Td or Tdap) 07/01/2034 07/01/2024, 04/27/2016, 08/24/2009, Additional history exists RSV Immunization Adult Patients (1 - 1-dose 75+ series) 2080 HIB Vaccines Completed 04/07/2009, 04/25, 2005, Additional history exists MMR Vaccines Completed 08/24/2009, 05/09/2006 Varicella Vaccines Completed 08/24/2009, 05/09/2006 Hepatitis A Vaccines Completed 05/13/2013, 11/08/19 13 Influenza Vaccine Completed 05/28/2025, 07/01/2024 COVID-19 Vaccine Completed 07/04/2025, , 07/08/2022, Additional history exists IPV Vaccines Aged Out No longer eligi ble based on patient's age to complete this topic Meningococcal ACWY Vaccine Aged Out N o longer eligible based on patient's age to complete this topic Pneumococcal Vaccine: Pediatrics (0 to 5 Years) and At-Risk Patients (6 to 49 Years) Aged Out No longer eligible based on patient's age to complete this topic RSV Immunization Patients Under 20 months Aged Out No longer eligible based on patient's age to complete this topic Procedures Procedure Name Priority Date/Time Associated Diagnosis Comments TILT TABLE Routine 07/29/2025 2:02 PM EST Orthostatic hypotension from Last 3 Months Results * Tilt table (07/29/2025 2:02 PM EST) Anatomical Region Laterality Modality Radiographic Gini ging Narrative 07/29/2025 2:46 PM EST Tilt Table The patient was brought to lab in fasting state. Patient lied supine for 5 minutes for equilibrium. Baseline ECG showed occ unifocal PVC's. Baseline supine minimum BP: 99/66 mmHg Baseline supine minimum HR: 45 bpm Patient tilted to 70 degrees. Tilt maintained for 20 minutes. Minimum BP during tilt: 91/62 mmHg Maximum BP during tilt: 117/85 mmHg Minimum heart rate during tilt: 45 bpm Maximum heart rate during tilt: 61 bpm Rhythm during tilt: sinus bradycardia There was a clear orthostatic response not noted. Patient experienced no HR increase with tilt. Symptoms seen on tilt include: dizziness and palpitations associated with PVC's. Premonitory symptoms were reproduced. Conclusion: Negative tilt test. us Clifford Thomas MD [facility] PRO CEDURES Final Result from Last 3 Months Insurance [facility] [place] ([place]) Care Teams Network Internship Relationship Specialty Start Date End Date Radha Marte [address] [place] [id number] PCP - General Family Medicine 07/28/25
== END 2025-09-15 14:04 | disposition home or self-care (01) ==
LOC: HO.HCS 13:40
PROVIDERS: PCP Registered Nurse; Visit Provider Internal Medicine
DX: I49.3 Ventricular premature depolarization (principal); R00.1 Bradycardia, unspecified; I95.1 Orthostatic hypotension; R53.82 Chronic fatigue, unspecified; U09.9 Post COVID-19 condition, unspecified
CPT/HCPCS: 99214